=== PATIENT | female | born 1955 | race Caucasian/White ===

== ENCOUNTER 2019-11-06 17:12 | Emergency (ER) | payer MEDICARE, BC, SELFPAY ==
[2019-11-06] VITALS (7 sets, daily range): BP systolic 103–135; BP diastolic 63–97; PULSE 83–124; RESP 14–18; TEMP 37; O2SAT 96–100
--- NOTE | ~2019-11-06 | XR_ITS ---
EXAMINATION: XR chest 2V DATE: 11/06/2019 18:17 INDICATION: Atrial fibrillation, palpitations TECHNIQUE: PA and lateral views of the chest are obtained. COMPARISON: PET/CT, 08/25/2018 FINDINGS: The lungs are free of acute opacities. Calcified pulmonary nodules are consistent with old granulomatous disease. There is no pleural effusion or pneumothorax. The cardiomediastinal silhouette is normal. There is mild S-shaped curvature of the spine. Changes of bilateral mastectomy with impla nt reconstruction are noted. There is moderate thoracic spondylosis. IMPRESSION: 1. No acute cardiopulmonary abnormality. Reviewed, dictated and finalized at location A. D EDITOR
--- NOTE | 2019-11-06 17:22 | ED.CHESTPAIN ---
HPI - Chest Pain General Chief Complaint: Chest Pain Stated Complaint: heart racing Time Seen by Provider: 11/06/19 17:15 Source: patient, family and RN notes reviewed Mode of arrival: other Limitations: no limitations History of Present Illness HPI narrative: Pt is a 64 y/o female who presents to the ED with c/o palpitations that began at 16:30 today. Pt has a hx of A-fib and takes Metoprolol. Pt was dx with A-fib in April 2019. Pt notes that she suddenly went into A-fib while talking to her whenever her sx started. She notes that she called her passenger brakeman and was recommended to come to the ED for further evaluation. She states that she can tell whenever she is going to A-fib because her heart will begin to race. She notes that she has not been drinking enough fluids as she should be. Pt reports vomiting at 1 AM. She notes that she had 4 episodes of emesis with her last episode at 6 AM today. Pt had her flu shot this year. Pt's spouse stated her blood pressure at home was 72/54. Pt also reports mild diarrhea, brief dizziness, brief lightheadedness, brief CP, body aches, and a ZARAGOZA, but denies SOB, fever, chills, diaphoresis, ABD pain, sore throat, rhinorrhea, cough, and congestion. Pt is taking Xaralto for her A-fib. Pt's passenger brakeman is Dr. Rodriguez. Pt's oncologist is Dr. Man. LYNN complaint: other (palpitations) Onset (ago): hour(s) (1) Timing of current episode: now resolved Onset: other (while talking with spouse) Associated symptoms: vomiting and other (mild diarrhea, brief dizziness, brief lightheadedness, brief CP, body aches, ZARAGOZA) Related Data Home Medications Medication Instructions Recorded Confirmed bupropion HCl 150 mg PO QAM 07/21/19 07/21/19 ezetimibe 10 mg PO DAILY 07/21/19 07/21/19 letrozole 2.5 mg PO DAILY 07/21/19 07/21/19 lisinopril 2.5 mg PO DAILY 07/21/19 07/21/19 meloxicam 15 mg PO DAILY 07/21/19 07/21/19 montelukast 10 mg PO HS 07/21/19 07/21/19 B-complex with vitamin C [Super B 1 tablet PO DAILY 09/08/19 09/08/19 Complex-Vitamin C] arginine oxoglurate 350 mg PO 09/08/19 [L-Arginine(alpha-ketoglutarat)] ascorbic acid (vitamin C) [Vitamin 1 g PO DAILY 09/08/19 09/08/19 C] calcium-vitamin D3-vitamin K 1 tablet PO DAILY 09/08/19 09/08/19 cyclobenzaprine 10 mg PO BID PRN 09/08/19 09/08/19 levothyroxine 88 mcg PO DAILY 09/08/19 09/08/19 metoprolol succinate [Toprol XL] 25 mg PO DAILY 09/08/19 09/08/19 omega-3 acid ethyl esters [Lovaza] 1 cap PO BID 09/08/19 09/08/19 rivaroxaban [Xarelto] 20 mg PO DAILY 09/08/19 09/08/19 Allergies Allergy/AdvReac Type Severity Reaction Status Date / Time Sulfa (Sulfonamide Allergy Severe HIVES Verified 07/24/19 06:36 Antibiotics) codeine AdvReac Severe N/V Verified 07/24/19 06:36 Review of Systems Review of Systems: All systems reviewed & are unremarkable except as noted in HPI and below Constitutional: Constitutional: Reports body ache(s), Denies chills and Denies fever(s) ENT: Denies sore throat and Denies other (congestion, rhinorrhea) Cardiovascular: Cardiovascular: Reports chest pain (brief), Denies diaphoresis, Reports lightheadedness (brief) and Reports other (palpitations) Respiratory: Respiratory: Denies cough and Denies dyspnea Gastrointestinal: Gastrointestinal: Denies abdominal pain, Reports diarrhea (mild) and Reports vomiting Neurologic: Reports dizziness (brief) and Reports headache(s) PMFSH Past Medical History Medical History (Updated 11/06/19 @ 20:39 by Diana Mari MD) A-fib Breast cancer with chemotherapy and radiation Depression HTN (hypertension) Hyperlipidemia Hypothyroid Surgical History Surgical History (Updated 11/06/19 @ 18:07 by Lexii Zaman) H/O breast reconstruction June 2019 H/O mastectomy double, in June 2018 Exam Const: General: cooperative, no acute distress and alert Nutritional Appearance: well nourished Orientation/consciousness: patient oriented x3 Limitations: no limi
[2019-11-06 17:23] LABS: Glucose Point of Care 110 (65-105)
--- NOTE | 2019-11-06 17:30 | ECG_ITS ---
Measurements Intervals [place] Rate: 114 P: NV: 0 QRS: 59 QRSD: 92 T: -40 QT: 395 QTc: 545 Interpretive Statements ATRIAL FIBRILLATION WITH RAPID VENTRICULAR RESPONSE BORDERLINE ST-T WAVE ABNORMALITY- ANTEROLAT/INF LEADS BASELINE ARTIFACT- I, II, III, AVL, AVF, V1 ABNORMAL ECG Electronically Signed On 11-06-2019 19:42:48 [employer] by Familia Jean D.O.
[2019-11-06] MEDS: LACTATED RINGERS 1,000 ML 999 ML IV CONT (17:37)
[2019-11-06 17:40] LABS: Basophils Percent Auto 0.2 % (0.2-1.2); Eosinophils Absolute Auto 0.1 K/mm3 (0-0.3); Eosinophils Percent Auto 1.4 % (0-4.4); Hematocrit 39.5 % (37.0-47.0); Immature Granulocyte Absolute 0.01 K/mm3 (0.00-0.031); Immature Granulocyte Percent A 0.2 % (0-0.5); Lymphocytes Absolute Auto 0.26 K/mm3 (0.9-3.2); Lymphocytes Percent Auto 6.2 % (18.3-44.2); Mean Corpuscular HGB Conc 32.9 g/dl (32-36); Mean Corpuscular Hemoglobin 30.6 pg (26-34); Mean Corpuscular Volume 92.9 fl (80-100); Mean Platelet Volume 9.6 fl (7.4-10.4); Monocytes Absolute Auto 0.2 K/mm3 (0.1-0.6); Monocytes Percent Auto 5.7 % (2.6-8.5); Neutrophils Absolute Auto 3.6 K/mm3 (1.3-6.7); Neutrophils Percent Auto 86.3 % (45.5-73.1); Platelet Count Result 146 k/mm3 (150-375); Red Blood Count 4.25 M/mm3 (4.2-5.4); Red Cell Distribution Width 12.9 % (11.5-14.5); White Blood Count 4.2 K/mm3 (4.5-10.0)
[2019-11-06 17:51] LABS: Alanine Aminotransferase 26 U/L (4-35); Albumin Level 4.2 g/dL (3.5-5.1); Alkaline Phosphatase 53 U/L (38-126); Aspartate Amino Transferase 32 U/L (14-36); Bilirubin,Total 0.6 mg/dL (0.2-1.3); Blood Urea Nitrogen 15 mg/dL (7-17); Calcium 9.1 mg/dL (8.4-10.2); Carbon Dioxide 24 mmol/L (22-30); Chloride 98 mmol/L (98-107); Estimated CRCL calculation 50 ml/min; Estimated Glomerular Filt Rate > 60; Glucose 113 mg/dL (65-105); Magnesium 1.7 mg/dL (1.6-2.3); Potassium 3.8 mmol/L (3.4-5.0); Sodium 134 mmol/L (137-145)
[2019-11-06 17:54] LABS: INR 1.1; Prothrombin Time 13.6 Seconds (11.1-14.7)
[2019-11-06 18:03] LABS: Troponin I < 0.012 ng/mL (0.000-0.034)
[2019-11-06 19:03] LABS: Add Urine Microscopic? YES; Appearance Urine Clear (Clear); Bilirubin Urine Negative (Negative); Blood Urine 1+ (Negative); Color Urine Straw (Yellow); Glucose Urine UA Negative (Negative); Ketones Urine Negative (Negative); Leukocyte Esterase Ur 3+ LEU/UL (Negative); Nitrate Urine Negative (Negative); Protein Urine Negative (Negative); RBC Urine 0-2 /hpf (0-2); Specific Grav Ur 1.008 (1.001-1.035); Squamous Epithelial Cell Urine Rare /hpf (Few); Urobilinogen Urine Negative mg/dL (<2.0)
[2019-11-06] MEDS: METOPROLOL TARTRATE INJ 5 MG/5 ML VIAL IV PUSH (20:25)
== END 2019-11-06 20:52 | disposition home or self-care (01) ==
PROVIDERS: Emergency Provider Emergency Medicine
DX: I48.91 Unspecified atrial fibrillation (principal); B34.9 Viral infection, unspecified; E86.0 Dehydration; Z79.01 Long term (current) use of anticoagulants; R94.31 Abnormal electrocardiogram [ECG] [EKG]; Z85.3 Personal history of malignant neoplasm of breast; Z92.21 Personal history of antineoplastic chemotherapy; Z92.3 Personal history of irradiation; E78.5 Hyperlipidemia, unspecified; E03.9 Hypothyroidism, unspecified; Z90.13 Acquired absence of bilateral breasts and nipples; R82.998 Other abnormal findings in urine
CPT/HCPCS: 36415; 71046; 80053; 81001; 82948; 83735; 84443; 84484; 85025; 85610; 85730; 87077; 87086; 87088; 87186; 87804; 93005; 96361; 96374; 99284; J7120

== ENCOUNTER 2019-12-11 10:29 | Outpatient (CLI) | payer MEDICARE, BC, SELFPAY ==
--- NOTE | ~2019-12-11 | MR_ITS ---
MR breast BI wo/w con 12/12/2019 08:13 CDT INDICATION: Surgery of breast cancer with implants. Palpable abnormality right breast. TECHNIQUE: MRI of the breasts perform using standard protocol pre-and post IV contrast with the follo wing sequences: Axial T2 STIR, axial T1, axial vibrant T1 with fat suppression precontrast and multip hasic postcontrast. COMPARISON: Pet/CT dated 08/25/2018 and ultrasound dated 11/28/2019 FINDINGS: Right breast: Precontrast images demonstrate heterogeneous signal intensity soft tissue lat eral to the right breast implant which does not enhance postcontrast. This soft tissue corresponds to the finding by ultrasound dated 11/28/2019. There is minimal background parenchymal enhancement. No enhancing lesions following contrast administration. No areas of enhancement meeting threshold crit eria on CAD analysis. No evidence of signal abnormalities in the axillary or internal mammary node d istributions. No evidence for implant rupture. Small amount of. Implant fluid, within normal limits. LEFT BREAST: No signal abnormalities on precontrast sequences. There is minimal, mild, moderate, mar ked background parenchymal enhancement. No enhancing lesions following contrast administration. No areas of enhancement meeting threshold criteria on CAD analysis. No evidence of signal abnormaliti es in the axillary or internal mammary node distributions. No evidence for implant rupture. IMPRESSION: 1: Right breast: Nonenhancing soft tissue lateral to the right breast implant corresponding to the s onographic finding on the 11/28/2019 outside examination. Six-month interval right breast ultrasound recommended. BI-RADS Category 3, likely benign. 2: Left breast: Negative. No evidence of malignancy. BI-RADS category 1. Recommend annual mammogr aphy follow-up. Follow-up MRI may be useful for supplementing mammographic evaluation as clinically indicated. Reviewed, dictated and finalized at location A. IMPRESSION: 1: Right breast: Nonenhancing soft tissue lateral to the right breast implant corresponding to the sonographic finding on the 11/28/2019 outside examination. Six-month interval right breast ultrasound recommended. BI-RADS Category 3, lo dickerson benign. 2: Left breast: Negative. No evidence of malignancy. BI-RADS category 1. Re commend annual mammography follow-up. Follow-up MRI may be useful for supplementing mammographic evaluation as clinic ally indicated.
[2019-12-11 13:01] LABS: Estimated Glomerular Filt Rate 55
== END 2019-12-11 10:30 | disposition home or self-care (01) ==
LOC: ANHIMG 10:41
PROVIDERS: Visit Provider Obstetrics & Gynecology
DX: Z85.3 Personal history of malignant neoplasm of breast (principal)
CPT/HCPCS: 36415; 77049; A9577; C8908

== ENCOUNTER 2021-08-13 10:00 | Outpatient (CLI) | payer MEDICARE, BC, SELFPAY ==
--- NOTE | ~2021-08-13 | MR_ITS ---
EXAMINATION: MR breast BI wo/w con INDICATION: Patient with history of bilateral mastectomy and implant reconstruction presents for foll ow-up of a palpable lump at the posterolateral margin of the right breast implant. TECHNIQUE: Axial VIBRANT pre and dynamic post contrast, Sagittal VIBRANT post contrast, Axial T2 STIR ASSET COMPARISON: 12/11/2019; ultrasound, 11/28/2019 CONTRAST: Multihance, 9 cc BREAST COMPOSITION: No breast tissue FINDINGS: RIGHT BREAST: There is a stable 1.3 x 0.9 cm soft tissue density at the posterolateral margin of the right breast implant. There is no internal enhancement. Finding likely represents scar tissue. No pat hologically enlarged axillary or internal mammary lymph nodes are identified. LEFT BREAST: No abnormal enhancement is present after contrast administration. No pathologically enla rged axillary or internal mammary lymph nodes are identified. IMPRESSION: 1. Stable soft tissue density along the posterolateral margin of the right breast implant, likely ref lecting scar tissue. Clinical follow-up is recommended. BI-RADS Category 2: Benign finding(s). Reviewed, dictated and finalized at location A. HANDLER IMPRESSION: 1. Stable soft tissue density along the posterolateral margin of the right [address] st implant, likely reflecting scar tissue. Clinical follow-up is recommended. BI-RADS Category 2: Benign finding(s).
[2021-08-13 10:37] LABS: Estimated Glomerular Filt Rate > 60
== END 2021-08-13 10:01 | disposition home or self-care (01) ==
LOC: ANHIMG 10:07
PROVIDERS: PCP Family Medicine Sports Medicine; Visit Provider Obstetrics & Gynecology
DX: N63.10 Unspecified lump in the right breast, unspecified quadrant (principal)
CPT/HCPCS: 77049; A9577; C8908

== ENCOUNTER 2022-03-05 10:16 | Outpatient (CLI) | payer MEDICARE, BC, SELFPAY ==
--- NOTE | ~2022-03-05 | PE_ITS ---
EXAMINATION: PET skull to mid thigh DATE: 03/05/2022 12:01 INDICATION: Breast cancer metastasized to axillary lymph node on the right. TECHNIQUE: Blood glucose level was 91 mg/dL. 11.331 mCi of 18-fluorodeoxyglucose (18-FDG) was adminis tered i.v. Low dose computed tomography (CT) images were acquired from the base of the brain to the p roximal thighs for attenuation correction and anatomic localization. Automated exposure control was e mployed. Dose-length product (DLP) was 235 mGy-cm. Positron emission tomography (PET) images were acq uired in the same distribution. COMPARISON: PET/CT 08/25/2018, breast MRI 08/13/21, 12/11/19 FINDINGS: Head/neck: There is increased activity in the oral cavity and pharynx without abnormal CT correlate, likely physiologic. There are no pathologically enlarged lymph nodes. Chest: There is scarring in the upper lobes without increased activity. Calcified right lung nodules are consistent with old granulomatous disease. There are centrilobular nodules and tree-in-bud opacit ies in right lower lobe, consistent with pneumonia. Material in right lower lobe bronchi may be aspir ation or mucous plugging. No pleural effusion. The heart size is normal. No pericardial effusion. The re are bilateral breast implants. There is a chronic 13 mm mass along the lateral margin of the right breast implant without increased activity, likely benign. Abdomen/pelvis/proximal thighs: The liver, spleen, gallbladder, pancreas, adrenal glands, and kidneys are normal. There are no dilated loops of bowel. There are no pathologically enlarged lymph nodes. T here is no free intraperitoneal fluid. There is no osseous metastatic disease. IMPRESSION: 1. No evidence of metastatic disease. 2. Right lower lobe pneumonia. Reviewed, dictated and finalized at location A.
[2022-03-05 10:40] LABS: Glucose Point of Care 91 mg/dl (65-105)
== END 2022-03-05 10:17 | disposition home or self-care (01) ==
PROVIDERS: PCP Family Medicine Sports Medicine; Visit Provider Internal Medicine
DX: C50.911 Malignant neoplasm of unspecified site of right female breast (principal); J18.9 Pneumonia, unspecified organism; C77.3 Secondary and unspecified malignant neoplasm of axilla and upper limb lymph nodes; R97.8 Other abnormal tumor markers; R97.0 Elevated carcinoembryonic antigen [CEA]
CPT/HCPCS: 78815; A9552